=== PATIENT | female | born 1960 | race Two or more races ===

== ENCOUNTER 2017-10-05 11:30 | Outpatient (CLI) | payer OTHER | END 2017-10-05 15:53 | disposition home or self-care (01) | LOC: DCC 11:30 | DX: R07.9 Chest pain, unspecified (principal); J45.909 Unspecified asthma, uncomplicated; E78.5 Hyperlipidemia, unspecified; E66.01 Morbid (severe) obesity due to excess calories; Z68.41 Body mass index [BMI] 40.0-44.9, adult | CPT/HCPCS: G0463 ==